=== PATIENT | female | born 1980 | race Caucasian/White ===

== ENCOUNTER 2024-06-11 08:08 | Outpatient (AMB) | payer MEDICAID, SELFPAY ==
[2024-06-11 08:14] VITALS: BP 88/57; PULSE 82; RESP 18; TEMP 36.1; O2SAT 98; BMI 25.9
--- NOTE | 2024-06-11 08:14 | ORTHONT_ITS ---
Vital signs 06/11/24 08:14 Height 1.6 m Height Method Stated Weight 66.48 kg Weight Measurement Method Standing Scale BMI 25.9 BP 88/57 L Blood Pressure Source Automatic Cuff Blood Pressure Location Right Upper Arm Position Sitting Respiration 18 Pulse 82 Pulse Source Monitor Temp 96.9 F Temp Source Temporal Artery Scan Pulse Oximetry (%) 98 Oxygen Delivery Method Room Air Med/Allergies Allergies & Medications Allergies No Known Drug Allergies Allergy (Verified 06/11/24 08:15) Medication Reconciliation No Known Home Medications 06/11/24 [History] Subjective Visit Visit for: new patient and knee Immunization / Flu Flu Vaccine in the Last 12 Months: No Flu Vaccine Exclusion Criteria: Refused by Patient History of Present Illness Chief complaint: RIGHT KNEE PAIN Date of injury / onset of symptoms: 6 MONTHS 43-year-old female with right knee pain that has been ongoing for several years. 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 The pains in the right knee is diffuse. She was a hinged knee brace. She tried 18 weeks of therapy. Personal History Occupation: [employer] PMH: none Pain Pain level (0-10): 8 Pain duration: ALL DAY Pain location: inside (medial), outside (lateral) and anterior Pain quality: sharp, dull, aching, burning and shocking Pain timing: night, increases with activity and stairs Ambulatory data Ambulatory device: cane Treatments Number of previous injections: 0 Improvement with previous injections: No Number of Physical Therapy sessions: 5 Improvement with PT: Yes Improvement with NSAIDS: n/a Review of Systems Review of Systems: All systems negative unless otherwise noted in HPI. Exam Exam Patient is in no acute distress and is cooperative with the examination today. Breathing is nonlabored. Patient has a normal mood and affect. Bilateral extremities were evaluated and demonstrates sensation intact to light touch. Palpable pedal pulses are present. No significant edema is present. Bilateral hips were examined. The patient has no pain with log roll of the hips. Internal rotation to 30 degrees and external rotation to 30 degrees is painless. Negative FADIR. Left knee was examined today. The left knee is in reasonable alignment. Range of motion from 0-120 degrees. Knee is stable to varus and valgus as well as AP translation with <5mm. Patient has a negative McMurrays. There is no pain with patellofemoral compression and no crepitus noted. The knee is nontender to palpation. The right knee was also examined. The right knee is in [varus] alignment. Range of motion from [0-115] degrees. Knee is stable to varus and valgus as well as AP translation with <5mm. Patient has a [negative] McMurrays. There is [no] pain with patellofemoral compression and [no] crepitus noted. The knee is [tender] to palpation [medially]. I reviewed an MRI dated 03/18/2024. This demonstrates a small tear of the lateral meniscus as well as a small partial tear of the ACL. It is still in continuity. Assessment and Plan Problem List (1) Degenerative tear of lateral meniscus: Status: Acute Plan: I discussed with the patient that she has a degenerative meniscal tear and some chondromalacia. It is not of significant severity. I discussed nonoperative treatment. She cannot take anti-inflammatories because of gastric sleeve I will get weightbearing x-rays to better assess the arthritis. We will likely do a cortisone injection at the next visit Office Procedures GNS Level of Care Nursing/Assessment Patient Status: Initial/New Patient Nursing Assessment/Reassesment: Medication Reconciliation, Update PMH in EMR and Vital Signs Coordination of Care: Complex Care and Chronic Disease 1-5, Education Complex Pt/Fam, Consent,records obtained, informed consent, 1 Ins Authorization, Results/Orders obtained and Staff clarify orders New Patient Charge New Patient Point Assignment: 1109 New Patient Point Charge: DYE LINE OPERATOR Level 3 ([id number]) Past Medical History Past Medical History Have you ever been diagnosed with any of the following: Respiratory Problems Smoking: No Smoking Exposure: No
== END 2024-06-11 08:25 | disposition home or self-care (01) ==
PROVIDERS: PCP Registered Nurse; Referring Provider Registered Nurse; Supervising Provider Orthopaedic Surgery Adult Reconstructive Orthopaedic Surgery; Visit Provider Orthopaedic Surgery Adult Reconstructive Orthopaedic Surgery
DX: S83.289D Other tear of lateral meniscus, current injury, unspecified knee, subsequent encounter (principal); X58.XXXD Exposure to other specified factors, subsequent encounter; M94.269 Chondromalacia, unspecified knee
CPT/HCPCS: 99203; G0463

== ENCOUNTER 2024-06-18 10:19 | Outpatient (AMB) | payer MEDICAID, SELFPAY ==
--- NOTE | 2024-06-18 09:42 | PD.ORTHTELE ---
Med/Allergies Allergies & Medications Allergies No Known Drug Allergies Allergy (Verified 06/11/24 08:15) Subjective Visit Visit for: follow up visit and x-rays Immunization / Flu Flu Vaccine in the Last 12 Months: No Flu Vaccine Exclusion Criteria: No Exclusion Criteria History of Present Illness Chief complaint: XRAY RESULTS Date of injury / onset of symptoms: 6 MONTHS 43-year-old female with right knee pain that has been ongoing for several years. 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 The pains in the right knee is diffuse. She was a hinged knee brace. She tried 18 weeks of therapy. Personal History Occupation: [employer] PMH: none Pain Pain level (0-10): 8 Pain duration: CONSTANT Pain location: inside (medial) Pain quality: sharp, dull and aching Pain timing: night and increases with activity Associated signs & symptoms: weakness Ambulatory data Ambulatory device: none Treatments Number of previous injections: 0 Improvement with previous injections: No Number of Physical Therapy sessions: 5 Improvement with PT: No Improvement with NSAIDS: no Review of Systems Review of Systems: All systems negative unless otherwise noted in HPI. Assessment and Plan Problem List (1) Degenerative tear of lateral meniscus: Status: Acute Plan: I discussed with the patient that she has a degenerative meniscal tear and some chondromalacia. 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 We thus discussed we can try cortisone injection at the next visit as she has not had one. Office Procedures GNS Level of Care Nursing/Assessment Patient Status: Established Patient Nursing Assessment/Reassesment: Medication Reconciliation, Update PMH in EMR and Vital Signs Coordination of Care: Complex Care and Chronic Disease 1-5, Education Complex Pt/Fam, Consent,records obtained, informed consent, 1 Ins Authorization, Lab and Imaging orders, Results/Orders obtained and Staff clarify orders Established Patient Charge Established Patient Point Assignment: 125 Telehealth Telemed Phone/Video with patient at home & Dr,PA,TRACK MOVING MACHINE OPERATOR: Yes
== END 2024-06-18 10:30 | disposition home or self-care (01) ==
LOC: HODSRG 10:19
PROVIDERS: PCP Registered Nurse; Referring Provider Registered Nurse; Supervising Provider Orthopaedic Surgery Adult Reconstructive Orthopaedic Surgery; Visit Provider Orthopaedic Surgery Adult Reconstructive Orthopaedic Surgery
DX: S83.289A Other tear of lateral meniscus, current injury, unspecified knee, initial encounter (principal); X58.XXXA Exposure to other specified factors, initial encounter; M94.269 Chondromalacia, unspecified knee; M17.0 Bilateral primary osteoarthritis of knee; Z98.84 Bariatric surgery status
CPT/HCPCS: 99212; G0463